=== PATIENT | female | born 1935 | race Caucasian/White ===

== ENCOUNTER 2017-06-17 20:43 | Emergency (ER) | payer OTHER ==
[~2017-06-17] VITALS: Ht 154.9 cm; Wt 59.1 kg
[2017-06-18 00:01] VITALS: BP 174/76
== END 2017-06-18 00:03 | disposition home or self-care (01) ==
LOC: EME → EDBD 20:43 → EME 20:43
DX: G91.2 (Idiopathic) normal pressure hydrocephalus (principal); R42 Dizziness and giddiness; M54.2 Cervicalgia; W01.0XXA Fall on same level from slipping, tripping and stumbling without subsequent striking against object, initial encounter; I10 Essential (primary) hypertension; K21.9 Gastro-esophageal reflux disease without esophagitis; E03.9 Hypothyroidism, unspecified; F41.9 Anxiety disorder, unspecified; Z85.828 Personal history of other malignant neoplasm of skin; Z72.0 Tobacco use; Z88.5 Allergy status to narcotic agent
CPT/HCPCS: 70450; 72125; 73502; 99281; 99284